=== PATIENT | male | born 1950 | race Caucasian/White ===

== ENCOUNTER 2022-11-14 20:02 | Inpatient (IN) | payer OTHER ==
[~2022-11-14] VITALS: Ht 170.2 cm; Wt 69.5 kg
[2022-11-14 21:50] LABS: Basophils # (auto) 0 10 ^3/uL (0-0.2); Basophils % (auto) 0.5 % (0.0-2.0); Eosinophils # (auto) 0 10 ^3/uL (0-0.8); Eosinophils % (auto) 0.3 % (0.0-7.0); Hematocrit 41.6 % (41.0-53.0); Hemoglobin 13.5 g/dL (13.5-17.5); Lymphocytes % (auto) 10.4 % (10.0-50.0); Mean Corpuscular Hemoglobin 27.7 pg (28.0-32.0); Mean Corpuscular Hgb Conc. 32.6 g/dL (32.0-36.0); Mean Corpuscular Volume 85.1 fL (80.0-100.0); Monocytes # (auto) 0.5 10 ^3/uL (0-1.3); Monocytes % (auto) 5.3 % (0.0-12.0); Neutrophils # (auto) 8.4 10 ^3/uL (1.6-8.6); Neutrophils % (auto) 83.5 % (37.0-80.0); Nucleated Red Blood Cells % 0.1 %; Red Blood Cells 4.88 10^6/uL (4.5-5.90)
[2022-11-14 22:01] LABS: INR 1.03 (0.9-1.15); Partial Thromboplastin Time 25.9 sec (24.6-33.4)
[2022-11-14 22:07] LABS: Alanine Aminotransferase 32 U/L (16-61); Albumin 3.1 g/dL (3.4-5.0); Anion Gap 8 (5-15); Aspartate Aminotransferase 23 U/L (15-37); BUN/Creatinine Ratio 28.8; Blood Alcohol < 3.0 mg/dL (0-5); Blood Urea Nitrogen 32 mg/dL (7-18); Calcium 9.2 mg/dL (8.5-10.1); Carbon Dioxide 26 mmol/L (21-32); Chloride 109 mmol/L (98-107); GFR African American 84 mL/min; GFR Non-African American 69 mL/min; Glucose 104 mg/dL (74-106); Magnesium 2.4 mg/dL (1.6-2.6); Potassium 4.4 mmol/L (3.5-5.1); Sodium 143 mmol/L (136-145)
[2022-11-14 22:09] LABS: Alkaline Phosphatase 74 U/L (45-117); Bilirubin, Total 0.7 mg/dL (0.2-1.0); Total Protein 5.9 g/dL (6.4-8.2)
[2022-11-14] MEDS ORDERED: cefTRIAXone 1GM/50ML D5W 50 ML IV ONE (23:00)
[2022-11-15] LABS: Urine WBC None Seen /hpf (0 - 3)
[2022-11-15 00:26] LABS: Alcohol, Urine < 3.0 mg/dL (0-10); Amphetamine Screen, Urine NEGATIVE (NEGATIVE); Barbiturate Scree,Urine NEGATIVE (NEGATIVE); Benzodiazephine Screen, Urine NEGATIVE (NEGATIVE); Cannabinoid Screen, Urine NEGATIVE (NEGATIVE); Cocaine Screen, Urine NEGATIVE (NEGATIVE); Opiate Scree,Urine NEGATIVE (NEGATIVE); Phencyclidine Screen, Urine NEGATIVE (NEGATIVE)
[2022-11-15 00:38] LABS: Urine Bacteria NONE SEEN /hpf (None Seen); Urine Blood Negative /uL (Negative); Urine Specific Gravity 1.029 (1.001-1.035)
[2022-11-15] MEDS ORDERED: ACETAMINOPHEN 325 MG TAB PO PRN (01:15)
[2022-11-15] MEDS ORDERED: ONDANSETRON HCL 4 MG/2 ML VIAL IV PRN (01:15)
[2022-11-15] MEDS: CARBIDOPA W LEVODOPA 10/100mg TABLET PO SCH ×3 (08:11→22:49)
[2022-11-15] MEDS: LOSARTAN POTASSIUM 50 MG TAB PO SCH (10:37)
[2022-11-15] MEDS: amLODIPine BESYLATE 5 MG TAB PO SCH (10:37)
[2022-11-15] MEDS: PANTOPRAZOLE 40 MG TAB PO SCH (10:37)
[2022-11-15] MEDS: ENOXAPARIN SOD 40 MG/0.4 ML SYRINGE SC SCH (10:37)
[2022-11-15] MEDS: AMANTADINE HCL 100 MG CAP PO SCH ×2 (13:46→22:00)
[2022-11-15] MEDS: TAMSULOSIN HYDROCHLORIDE 0.4 MG CAP PO SCH (18:24)
[2022-11-15 22:00] VITALS: BP 118/56
[2022-11-15] MEDS: ATORVASTATIN 20 MG TAB PO SCH (22:22)
[2022-11-15] MEDS: DONEPEZIL HYDROCHLORIDE 5 MG TAB PO SCH (22:22)
[2022-11-16 00:02] VITALS: BP 129/55
[2022-11-16] MEDS ORDERED: ROSU20TA14 PO (04:28)
[2022-11-16] MEDS ORDERED: FINA5TAB4 PO (04:28)
[2022-11-16] MEDS ORDERED: ASPI-543 PO (04:28)
[2022-11-16] MEDS ORDERED: DONE5TAB80 PO (04:28)
[2022-11-16] MEDS ORDERED: TRAM50TA2 PO (04:28)
[2022-11-16] MEDS ORDERED: TAMS0.4C36 PO (04:28)
[2022-11-16] MEDS ORDERED: AMLO-489 PO (04:28)
[2022-11-16] MEDS ORDERED: LOSA-39 PO (04:28)
[2022-11-16 05:00] VITALS: BP 106/46
[2022-11-16] MEDS: CARBIDOPA W LEVODOPA 10/100mg TABLET PO SCH ×3 (06:03→21:25)
[2022-11-16 06:04] LABS: BUN/Creatinine Ratio 32.5; Calcium 8.7 mg/dL (8.5-10.1); Potassium 4.1 mmol/L (3.5-5.1)
[2022-11-16] MEDS: LOSARTAN POTASSIUM 50 MG TAB PO SCH (10:09)
[2022-11-16] MEDS: AMANTADINE HCL 100 MG CAP PO SCH ×2 (10:10→21:25)
[2022-11-16] MEDS: amLODIPine BESYLATE 5 MG TAB PO SCH (10:10)
[2022-11-16] MEDS: PANTOPRAZOLE 40 MG TAB PO SCH (10:10)
[2022-11-16] MEDS: ENOXAPARIN SOD 40 MG/0.4 ML SYRINGE SC SCH (10:10)
[2022-11-16 10:13] VITALS: BP 97/43
[2022-11-16 14:00] VITALS: BP 121/49
[2022-11-16 17:27] VITALS: BP 102/42
[2022-11-16] MEDS: TAMSULOSIN HYDROCHLORIDE 0.4 MG CAP PO SCH (18:02)
[2022-11-16] MEDS: ATORVASTATIN 20 MG TAB PO SCH (21:25)
[2022-11-16] MEDS: DONEPEZIL HYDROCHLORIDE 5 MG TAB PO SCH (21:25)
[2022-11-16 22:00] VITALS: BP 98/40
[2022-11-17 05:00] VITALS: BP 104/47
[2022-11-17] MEDS: CARBIDOPA W LEVODOPA 10/100mg TABLET PO SCH ×3 (06:22→21:57)
[2022-11-17 09:00] VITALS: BP 113/71
[2022-11-17] MEDS: PANTOPRAZOLE 40 MG TAB PO SCH (10:00)
[2022-11-17] MEDS: AMANTADINE HCL 100 MG CAP PO SCH ×2 (10:04→21:57)
[2022-11-17] MEDS: amLODIPine BESYLATE 5 MG TAB PO SCH (10:05)
[2022-11-17] MEDS: ENOXAPARIN SOD 40 MG/0.4 ML SYRINGE SC SCH (10:06)
[2022-11-17] MEDS: LOSARTAN POTASSIUM 50 MG TAB PO SCH (10:06)
[2022-11-17] MEDS ORDERED: CARB10TA5 PO (11:21)
[2022-11-17 13:00] VITALS: BP 116/79
[2022-11-17 15:20] VITALS: BP 119/74
[2022-11-17 17:00] VITALS: BP 119/74
[2022-11-17] MEDS: TAMSULOSIN HYDROCHLORIDE 0.4 MG CAP PO SCH (18:30)
[2022-11-17] MEDS: DONEPEZIL HYDROCHLORIDE 5 MG TAB PO SCH (21:57)
[2022-11-17] MEDS: ATORVASTATIN 20 MG TAB PO SCH (21:57)
[2022-11-17 22:00] VITALS: BP 104/46
[2022-11-18 05:00] VITALS: BP 93/31
[2022-11-18] MEDS: CARBIDOPA W LEVODOPA 10/100mg TABLET PO SCH ×2 (05:53→14:30)
[2022-11-18 09:00] VITALS: BP 96/42
[2022-11-18] MEDS: PANTOPRAZOLE 40 MG TAB PO SCH (09:55)
[2022-11-18] MEDS: ENOXAPARIN SOD 40 MG/0.4 ML SYRINGE SC SCH (09:55)
[2022-11-18] MEDS: LOSARTAN POTASSIUM 50 MG TAB PO SCH (09:56)
[2022-11-18] MEDS: AMANTADINE HCL 100 MG CAP PO SCH (09:56)
[2022-11-18] MEDS: amLODIPine BESYLATE 5 MG TAB PO SCH (09:56)
[2022-11-18 13:00] VITALS: BP 125/55
== END 2022-11-18 16:08 | disposition home health service (06) | DRG 57 ==
LOC: EDBD 20:02 → ER 20:06 → OVERFLOW 11-15 01:13 → CENTRAL 11-15 20:59
PROVIDERS: ADMIT Nurse Practitioner; ATTEND Internal Medicine
DX: G20 Parkinson's disease (principal); F02.80 Dementia in other diseases classified elsewhere, unspecified severity, without behavioral disturbance, psychotic disturbance, mood disturbance, and anxiety; I10 Essential (primary) hypertension; Z20.822 Contact with and (suspected) exposure to COVID-19; E78.5 Hyperlipidemia, unspecified
CPT/HCPCS: 36415; 70450; 70551; 71045; 80048; 80053; 80307; 80320; 81001; 82607; 83090; 83605; 83735; 84443; 84484; 85025; 85610; 85730; 87040; 87081; 87426; 93005; 95819; 96365; 96372; 97163; G0378; J0696